=== PATIENT | female | born 1960 | race Caucasian/White ===

== ENCOUNTER 2016-11-30 15:10 | Emergency (ER) | payer SELFPAY ==
[~2016-11-30] VITALS: Wt 67.5 kg
[2016-11-30] MEDS ORDERED: SOD CHLORIDE 0.9% 1,000 ML IV STA (15:59)
[2016-11-30] MEDS ORDERED: FAMOTIDINE 20 MG INJ IV STA (15:59)
[2016-11-30] MEDS ORDERED: ONDANSETRON 4 MG INJ IV STA (15:59)
[2016-11-30] MEDS ORDERED: morphine 4 MG/ML VIAL IV STA (15:59)
[2016-11-30 16:23] LABS: ADD SCAN DIFF NO
[2016-11-30 16:30] LABS: BASOPHILS % 0.3 % (0.0-2.0); HEMATOCRIT 43.2 % (37.0-47.0); HEMOGLOBIN 14.3 g/dl (12.0-16.0); LYMPHOCYTES # 1.6 10^3/ul (0.8-2.9); LYMPHOCYTES % 14.2 % (15.0-51.0); MEAN CORPUSCULAR HEMOGLOBIN 28.7 pg (29.0-33.0); MEAN CORPUSCULAR HGB CONC 33.1 g/dl (32.0-37.0); MEAN CORPUSCULAR VOLUME 86.6 fl (82.0-101.0); MEAN PLATELET VOLUME 11.2 fl (7.4-10.4); MONOCYTE # 0.4 10^3/ul (0.3-0.9); MONOCYTES % 3.1 % (0.0-11.0); NEUTROPHIL # 9.4 10^3/ul (1.6-7.5); NEUTROPHILS % 82.1 % (39.0-77.0); PLATELET COUNT 264 10^3/UL (140-415); RED BLOOD COUNT 4.99 10^6/ul (4.20-5.40); RED CELL DISTRIBUTION WIDTH 12.9 % (11.5-14.5); WHITE BLOOD COUNT 11.4 10^3/ul (4.8-10.8)
[2016-11-30 16:49] LABS: ALANINE AMINOTRANSFERASE 39 IU/L (13-69); ALBUMIN 5.5 g/dl (3.3-4.9); ALBUMIN/GLOBULIN RATIO 1.52; ALKALINE PHOSPHATASE 113 IU/L (42-121); ANION GAP 18 (8-16); ASPARTATE AMINO TRANSFERASE 33 IU/L (15-46); BILIRUBIN,INDIRECT 0.6 mg/dl (0-1.1); BILIRUBIN,TOTAL 0.6 mg/dl (0.2-1.3); BLOOD UREA NITROGEN 12 mg/dl (7-20); CALCIUM 10.5 mg/dl (8.4-10.2); CARBON DIOXIDE 24 mmol/L (21-31); CHLORIDE 101 mmol/L (97-110); CREATININE 0.75 mg/dl (0.44-1.00); GLUCOSE 139 mg/dl (70-220); POTASSIUM 3.9 mmol/L (3.5-5.1); SODIUM 139 mmol/L (135-144); TOTAL PROTEIN 9.1 g/dl (6.1-8.1)
[2016-11-30 16:56] LABS: UR BILIRUBIN (Dip) NEGATIVE (NEGATIVE); UR BLOOD (Dip) NEGATIVE (NEGATIVE); UR COLOR LT. YELLOW (YELLOW); UR GLUCOSE (Dip) NEGATIVE (NEGATIVE); UR KETONES (Dip) 1+ (NEGATIVE); UR LEUKOCYTE ESTERASE (Dip) NEGATIVE (NEGATIVE); UR NITRITE (Dip) NEGATIVE (NEGATIVE); UR TOTAL PROTEIN (Dip) NEGATIVE (NEGATIVE); UR UROBILINOGEN (Dip) 0.2 E.U./dL (0.1-1.0)
[2016-11-30 17:00] LABS: ADD UMIC NO; UR CLARITY SLIGHTLY CLOUDY (CLEAR)
[2016-11-30 17:01] LABS: TROPONIN-I < 0.012 ng/ml (0.00-0.12)
--- NOTE | 2016-11-30 17:24 | RADRPT ---
PROCEDURE: US Abdomen (right upper quadrant). CLINICAL INDICATION: Right upper quadrant abdomen pain. TECHNIQUE: Multiple real-time longitudinal and transverse images of the right upper quadrant of th e abdomen were acquired utilizing a curved array transducer. Images were reviewed on a high-resoluti on PACS workstation. COMPARISON: None FINDINGS: The liver is increased in echogenicity without focal lesion. There are gallstones and sludge within the gallbladder. The gallbladder wall is not thickened. The re is no pericholecystic fluid. The bile ducts are normal with the common bile duct measuring 5 mm in diameter. The visualized portions of the pancreas are unremarkable with obscuration of the tail of the pancrea s. No free fluid is present. The right kidney measures 9.9 cm in length. There is normal echogenicity of the right kidney. The re is no perinephric fluid collection. No hydronephrosis, mass, or calculus is seen. IMPRESSION: 1. Cholelithiasis and sludge. No ultrasound evidence of acute cholecystitis. 2. Fatty liver. RPTAT: [facility] .Kofi Benitez MD, MD Date Time Electronically viewed and signed by .Kofi Benitez MD, on 11/30/2016 17:23 .K/
--- NOTE | 2016-11-30 17:44 | ERD ---
ER Documentation Chief Complaint Date/Time DATE: 11/30/16 TIME: 17:37 Chief Complaint epigastric pain since 04am with N/V unk # of emesis (BRITTANEY PATTEN NP) HPI This is a 56-year-old female presents to the emergency department for epigastric abdominal pain with nausea and vomiting starting today. Patient states symptoms started around 4 AM about 11 hours ago. Patient states she has had about 6 episodes of nonbloody, nonbilious emesis. Patient has had severe 10 /10 epigastric pain that rates to right upper quadrant of abdomen. Describes pain as sharp and pressure. Patient did not take anything for pain. No diarrhea or constipation. No fevers or chills. Patient states she has never had this pain before. (BRITTANEY PATTEN NP) ROS All systems reviewed and are negative except as per history of present illness. (BRITTANEY PATTEN NP) Medications Home Meds Active Scripts Ondansetron (Ondansetron Odt) 4 Mg Tab.rapdis, 4 MG PO Q6H Y for NAUSEA AND/OR VOMITING, #10 TAB Prov:BRITTANEY PATTEN NP 11/30/16 Ibuprofen* (Motrin*) 400 Mg Tab, 400 MG PO Q6, #20 TAB Prov:BRITTANEY PATTEN NP 11/30/16 Hydrocodone/Acetaminophen ([place] 5-325 Tablet) 1 Each Tablet, 1 TAB PO Q6H Y for PAIN, #7 TAB Prov:BRITTANEY PATTEN NP 11/30/16 Allergies Allergies: Coded Allergies: No Known Allergy (Unverified , 11/30/16) PMhx/Soc Medical and Surgical Hx: pt denies Medical Hx, pt denies Surgical Hx History of Surgery: Yes (Hystorectomy) Hx Alcohol Use: Yes Hx Substance Use: No Hx Tobacco Use: No Smoking Status: Never smoker (BRITTANEY PATTEN NP) Physical Exam Vitals Vital Signs Date Time Temp Pulse Resp B/P Pulse Ox O2 Delivery O2 Flow Rate FiO2 11/30/16 15:27 99.1 73 27 139/69 100 (RUCHI BOOKER PA-C) Physical Exam Const: Alert, and writhing in pain Head: Atraumatic Eyes: Normal Conjunctiva ENT: Normal External Ears, Nose and Mouth. Neck: Full range of motion..~ No meningismus. Resp: Clear to auscultation bilaterally. No wheezing, rhonchi or crackles. Cardio: Regular rate and rhythm, no murmurs Abd: Soft, non tender, non distended. Normal bowel sounds. Positive Mandel sign, negative rebound tenderness, negative psoas sign Skin: No petechiae or rashes Back: No midline or flank tenderness. No CVA tenderness. Ext: No cyanosis, or edema Neur: Awake and alert Psych: Normal Mood and Affect (SANDOR,BRITTANEY Aguilar NP) Result Diagram: 11/30/16 1610 11/30/16 1610 Results 24 hrs Laboratory Tests Test 11/30/16 16:10 White Blood Count 11.410^3/ul Red Blood Count 4.9910^6/ul Hemoglobin 14.3g/dl Hematocrit 43.2% Mean Corpuscular Volume 86.6fl Mean Corpuscular Hemoglobin 28.7pg Mean Corpuscular Hemoglobin Concent 33.1g/dl Red Cell Distribution Width 12.9% Platelet Count 33484^3/UL Mean Platelet Volume 11.2fl Neutrophils % 82.1% Lymphocytes % 14.2% Monocytes % 3.1% Eosinophils % 0.0% Basophils % 0.3% Nucleated Red Blood Cells % 0.0/100WBC Neutrophils # 9.410^3/ul Lymphocytes # 1.610^3/ul Monocytes # 0.410^3/ul Eosinophils # 0.010^3/ul Basophils # 0.010^3/ul Nucleated Red Blood Cells # 0.010^3/ul Urine Color LT. YELLOW Urine Clarity SLIGHTLY CLOUDY Urine pH 8.5 Urine Specific [place] 1.015 Urine Ketones 1+ Urine Nitrite NEGATIVE Urine Bilirubin NEGATIVE Urine Urobilinogen 0.2 E.U./dL Urine Leukocyte Esterase NEGATIVE Urine Hemoglobin NEGATIVE Urine Glucose NEGATIVE% Urine Total Protein NEGATIVE Sodium Level 139mmol/L Potassium Level 3.9mmol/L Chloride Level 101mmol/L Carbon Dioxide Level 24mmol/L Anion Gap 18 Blood Urea Nitrogen 12mg/dl Creatinine 0.75mg/dl Glucose Level 139mg/dl Calcium Level 10.5mg/dl Total Bilirubin 0.6mg/dl Direct Bilirubin 0.00mg/dl Indirect Bilirubin 0.6mg/dl Aspartate Amino Transf (AST/SGOT) 33IU/L Alanine Aminotransferase (ALT/SGPT) 39IU/L Alkaline Phosphatase 113IU/L Troponin I < 0.012ng/ml Total Protein 9.1g/dl Albumin 5.5g/dl Globulin 3.60g/dl Albumin/Globulin Ratio 1.52 Lipase 51U/L Current Medications Medications (Trade) Dose Ordered Sig/Chetan Route PRN Reason Start Time Stop Time Status Last Admin Dose Admin Sodium Chloride (NS) 1,000 ml @ 1,000 mls/hr Q1H STAT IV 11/30/16 15:59 11/30/16 16:58 DC 11/30/16 16:11 Morphine Sulfate (morphine) 4 mg ONCE STAT IV 11/30/16 15:59 11/30/16 16:03 DC 11/30/16 16:11 Ondansetron HCl (Zofran Inj) 4 mg ONCE STAT IV 11/30/16 15:59 11/30/16 16:03 DC 11/30/16 16:11 Famotidine (Pepcid Iv) 20 mg ONCE STAT IV 11/30/16 15:59 11/30/16 16:03 DC 11/30/16 16:11 (RUCHI BOOKER PA-C) Procedures/MDM Patient: TENA SHARPE : 1960 Age: 56 Sex: F MR #: [id number] DOS: 11/30/16 1559 Ordering MD: BRITTANEY PATTEN NP Location: [facility] Room/Bed: PROCEDURE: US Abdomen (right upper quadrant). CLINICAL INDICATION: Right upper quadrant abdomen pain. TECHNIQUE: Multiple real-time longitudinal and transverse images of the right upper quadrant of the abdomen were acquired utilizing a curved array transducer. Images were reviewed on a high-resolution PACS workstation. COMPARISON: None FINDINGS: The liver is increased in echogenicity without focal lesion. There are gallstones and sludge within the gallbladder. The gallbladder wall is not thickened. There is no pericholecystic fluid. The bile ducts are normal with the common bile duct measuring 5 mm in diameter. The visualized portions of the pancreas are unremarkable with obscuration of the tail of the pancreas. No free fluid is present. The right kidney measures 9.9 cm in length. There is normal echogenicity of the right kidney. There is no perinephric fluid collection. No hydronephrosis , mass, or calculus is seen. IMPRESSION: 1. Cholelithiasis and sludge. No ultrasound evidence of acute cholecystitis. 2. Fatty liver. [place] [id number] Radiology Main Line: [phone] DIAGNOSTIC IMAGING REPORT Patient: TENA SHAREP : 1960 Age: 56 Sex: F MR #: [id number] DOS: 11/30/16 1559 Ordering MD: BRITTANEY PATTEN NP Location: [facility] Room/Bed: PROCEDURE: CT KUB. CLINICAL INDICATION: epigastric abdominal pain TECHNIQUE: CT KUB (Renal Stone Survey) without contrast was performed on a [employer] volumetric [address] scanner. No IV contrast was administered. 3-D coronal reformatted images were obtained from the axial source images. CTDI: 9.0 mGy DLP: 483 mGy-cm COMPARISON: No prior studies are available for comparison. FINDINGS: Limited evaluation of the lung bases are clear. The unenhanced liver, spleen, bilateral adrenal glands, and pancreas are normal- appearing. The gallstone seen on the same day abdominal ultrasound is not well radiopaque are not well seen by CT. There is minimal diffuse gallbladder wall thickening which is nonspecific. No pericholecystic fluid or fat stranding. The bilateral kidneys are normal-appearing aside from a nonobstructing left lower pole renal calculus measuring approximately 2 mm. No hydronephrosis. No gross renal mass. The small and large bowel are thin-walled and nondilated without evidence for obstruction. The uterus is surgically absent. The appendix is normal. No abdominal pelvic free air, free fluid, mesenteric stranding, nor lymphadenopathy by imaging size criteria. Urinary bladder is grossly normal. The abdominal aorta is normal in caliber. No suspicious osseous lesions. IMPRESSION: Mild diffuse gallbladder wall thickening without pericholecystic fluid or fat stranding is nonspecific. Recommend correlation with physical exam and same day abdominal ultrasound to exclude cholecystitis. The gallstone seen on the same day abdominal ultrasound is not radiopaque and therefore not seen on the CT examination. 2 mm left lower pole nonobstructing renal calculus. Normal appendix. Status post hysterectomy. EKG: As interpreted by myself and Dr. Rivas Rate/Rhythm: Normal sinus rhythm with heart rate 68 bpm QRS, ST, T-waves: No changes consistent w/ acute ischemia Impression: No evidence of ischemia or arrhythmia MDM: This is a 56-year-old female presenting to the emergency department for epigastric pain with nausea and vomiting starting today. Patient had 6 episodes of nonbloody nonbilious emesis earlier today. Patient is writhing in pain upon arrival. IV access obtained and patient given morphine, Zofran and Pepcid. No active vomiting while in the ED. Upon reassessment, patient states pain is now 2/10 and pain is tolerable. Patient is resting comfortably on recliner. Labs are unremarkable. No significant anemia or infection. No elevated liver enzymes-AST and ALT are normal. Bilirubin is normal. Gallbladder ultrasound reviewed by radiologist as cholelithiasis and sludge. No ultrasound evidence of acute cholecystitis. Fatty liver. Patient was signed out to Enrique REBOLLEDO pending CT abdomen and pelvis results. CT abdomen and pelvis reviewed by radiologist as mild diffuse gallbladder wall thickening without pericholecystic fluid or fat stranding is nonspecific. 2 mm left lower pole nonobstructing renal calculus. Differential diagnosis includes but not limited to acute MD, pancreatitis, peptic ulcer disease, GERD, gastritis and gastroparesis and functional dyspepsia. I doubt acute MD due to patient's normal vital signs, patient denies chest pain , shortness of breath, difficulty breathing or heart palpitations. I doubt pancreatitis due to patient's normal lab results. Patient is appropriate for outpatient management and instructed to follow-up with primary care provider in the next 2-3 days for reassessment. Return to ED for any high fever, chest pain, difficulty breathing, shortness breath, wheezing , vomiting, diarrhea, abdominal pain or any new or worsening symptoms. Patient verbalizes understanding. All questions answered at discharge. (BRITTANEY PATTEN NP) Brittaney asked me to follow-up regarding CT results which are here below. Please refer to her note for further details regarding this patient's visit Mild diffuse gallbladder wall thickening without pericholecystic fluid or fat stranding is nonspecific. Recommend correlation with physical exam and same day abdominal ultrasound to exclude cholecystitis. The gallstone seen on the same day abdominal ultrasound is not radiopaque and therefore not seen on the CT examination. 2 mm left lower pole nonobstructing renal calculus. Normal appendix. Status post hysterectomy. (RUCHI BOOKER PA-C) Departure Diagnosis: Primary Impression: Cholelithiasis Cholelithiasis location: gallbladder Cholecystitis presence: without cholecystitis Biliary obstruction: without biliary obstruction Qualified Code : K80.20 - Calculus of gallbladder without cholecystitis without obstruction Condition: Stable BRITTANEY PATTEN NP Nov 30, 2016 17:44 RUCHI BOOKER PA-C Nov 30, 2016 18:59
[2016-11-30] MEDS ORDERED: IBUP400T22 PO (17:56)
[2016-11-30] MEDS ORDERED: HYDR-906 PO (17:56)
[2016-11-30] MEDS ORDERED: ONDA4TAB14 PO (17:56)
--- NOTE | 2016-11-30 18:49 | RADRPT ---
PROCEDURE: CT KUB. CLINICAL INDICATION: epigastric abdominal pain TECHNIQUE: CT KUB (Renal Stone Survey) without contrast was performed on a [employer] volumetric [address] scanner. No IV contrast was administered. 3-D coronal reformatted images were obtained from the axial source images. CTDI: 9.0 mGy DLP: 483 mGy-cm COMPARISON: No prior studies are available for comparison. FINDINGS: Limited evaluation of the lung bases are clear. The unenhanced liver, spleen, bilateral adrenal glands, and pancreas are normal-appearing. The gallstone seen on the same day abdominal ultrasound is not well radiopaque are not well seen by CT. There is minimal diffuse gallbladder wall thickening which is nonspecific. No pericholecystic fluid or fat stranding. The bilateral kidneys are normal-appearing aside from a nonobstructing left lower pole renal calculu s measuring approximately 2 mm. No hydronephrosis. No gross renal mass. The small and large bowel are thin-walled and nondilated without evidence for obstruction. The uterus is surgically absent. The appendix is normal. No abdominal pelvic free air, free fluid, mesenteric stranding, nor lymphadenopathy by imaging size criteria. Urinary bladder is grossly normal. The abdominal aorta is normal in caliber. No suspicious osseous lesions. IMPRESSION: Mild diffuse gallbladder wall thickening without pericholecystic fluid or fat stranding is nonspecif ic. Recommend correlation with physical exam and same day abdominal ultrasound to exclude cholecyst itis. The gallstone seen on the same day abdominal ultrasound is not radiopaque and therefore not s een on the CT examination. 2 mm left lower pole nonobstructing renal calculus. Normal appendix. Status post hysterectomy. Physician Eric Date Time Electronically viewed and signed by Physician Eric on 11/30/2016 18:49 ML/
[2016-11-30 19:03] VITALS: BP 115/65; PULSE 62; RESP 16; TEMP 98.3
== END 2016-11-30 19:06 | disposition home or self-care (01) ==
LOC: FTE 15:10
DX: K80.20 Calculus of gallbladder without cholecystitis without obstruction (principal); R11.2 Nausea with vomiting, unspecified
CPT/HCPCS: 36415; 74176; 76705; 80053; 81003; 83690; 84484; 85025; 93005; 96374; 96375; 99285; J2270; J2405; J7030

== ENCOUNTER 2018-11-03 18:34 | Emergency (ER) | payer OTHER ==
[~2018-11-03] VITALS: Wt 68.9 kg
[~2018-11-03 18:34] MED LIST: HYDR-4011 PO; IBUP-1561 PO; ONDA4TAB14 PO
--- NOTE | 2018-11-03 19:04 | ERD ---
ER Documentation Chief Complaint Chief Complaint AP X'S 4 HOURS HPI The patient is a 58-year-old female, presenting to the ER because of recurrent right upper quad abdominal pain at 4 PM after eating around 1 PM, had similar symptoms previously, denies fever, chills, neck pain, chest pain, dyspnea, vomiting, dysuria, diarrhea. She does not smoke nor drink Past medical history: Cholelithiasis, osteoporosis Past surgical history: None ROS All systems reviewed and are negative except as per history of present illness. Medications Home Meds Active Scripts Ibuprofen* (Motrin*) 600 Mg Tab, 600 MG PO Q6H PRN for PAIN AND OR ELEVATED TEMP, #20 TAB Prov:PAULA VILLEDA MD 11/03/18 Ondansetron (Ondansetron Odt) 4 Mg Tab.rapdis, 4 MG PO Q6H PRN for NAUSEA AND/OR VOMITING, #10 TAB Prov:BRAN PATETN NP 11/30/16 Ibuprofen* (Motrin*) 400 Mg Tab, 400 MG PO Q6, #20 TAB Prov:BRAN PATTEN NP 11/30/16 Hydrocodone/Acetaminophen ([place] 5-325 Tablet) 1 Each Tablet, 1 TAB PO Q6H PRN for PAIN, #7 TAB Prov:BRAN PATTEN NP 11/30/16 Allergies Allergies: Coded Allergies: No Known Allergy (Unverified , 11/30/16) PMhx/Soc History of Surgery: Yes (Hystorectomy) Hx Alcohol Use: Yes Hx Substance Use: No Hx Tobacco Use: No Physical Exam Vitals Vital Signs Date Temp Pulse Resp B/P (MAP) Pulse Ox O2 O2 Flow FiO2 Time Delivery Rate 11/03/18 78 18 146/90 100 Room Air 22:34 (108) 11/03/18 76 145/83 21:48 (103) 11/03/18 97.3 94 20 158/80 98 18:35 (106) Physical Exam Const: No acute distress. Head: Atraumatic. Eyes: Normal Conjunctiva. ENT: Normal External Ears, Nose and Mouth. Neck: Full range of motion. No meningismus. Resp: Clear to auscultation bilaterally. Cardio: Regular rate and rhythm. Abd: Soft, non distended, normal bowel sounds, non tender. Mild right upper quadrant tenderness, no rigidity/rebound/CVA tenderness Skin: No petechiae or rashes. Back: No midline or flank tenderness. Ext: No cyanosis, or edema. Neur: Awake and alert. No focal deficit Psych: Normal Mood and Affect. Result Diagram: 11/03/18199911/03/181999 Results 24 hrs Laboratory Tests Test 11/03/18 20:00 11/03/18 21:23 White Blood Count 8.7 10^3/ul Red Blood Count 4.87 10^6/ul Hemoglobin 14.2 g/dl Hematocrit 41.6 % Mean Corpuscular Volume 85.4 fl Mean Corpuscular Hemoglobin 29.2 pg Mean Corpuscular Hemoglobin Concent 34.1 g/dl Red Cell Distribution Width 13.2 % Platelet Count 218 10^3/UL Mean Platelet Volume 11.1 fl Immature Granulocytes % 0.300 % Neutrophils % 63.4 % Lymphocytes % 27.6 % Monocytes % 6.5 % Eosinophils % 1.6 % Basophils % 0.6 % Nucleated Red Blood Cells % 0.0 /100WBC Immature Granulocytes # 0.030 10^3/ul Neutrophils # 5.5 10^3/ul Lymphocytes # 2.4 10^3/ul Monocytes # 0.6 10^3/ul Eosinophils # 0.1 10^3/ul Basophils # 0.1 10^3/ul Nucleated Red Blood Cells # 0.0 10^3/ul Sodium Level 141 mmol/L Potassium Level 3.7 mmol/L Chloride Level 109 mmol/L Carbon Dioxide Level 21 mmol/L Anion Gap 11 Blood Urea Nitrogen 14 mg/dl Creatinine 0.63 mg/dl Est Glomerular Filtrat Rate mL/min > 60 mL/min Glucose Level 103 mg/dl Calcium Level 9.9 mg/dl Total Bilirubin 0.5 mg/dl Direct Bilirubin 0.00 mg/dl Indirect Bilirubin 0.5 mg/dl Aspartate Amino Transf (AST/SGOT) 43 IU/L Alanine Aminotransferase (ALT/SGPT) 29 IU/L Alkaline Phosphatase 134 IU/L Total Protein 8.2 g/dl Albumin 4.6 g/dl Globulin 3.60 g/dl Albumin/Globulin Ratio 1.27 Lipase 82 U/L Bedside Urine pH (LAB) 7.5 Bedside Urine Protein (LAB) Negative Bedside Urine Glucose (UA) Negative Bedside Urine Ketones (LAB) Negative Bedside Urine Blood Negative Bedside Urine Nitrite (LAB) Negative Bedside Urine Leukocyte Esterase (L Trace Current Medications Medications Dose Sig/Chetan Start Time Status Last (Trade) Ordered Route PRN Stop Time Admin Dose Reason Admin Ketorolac 30 mg ONCE STAT 11/03/18 DC 11/03/18 Tromethamine IV 20:01 20:34 (Toradol) 11/03/18 20:02 Procedures/[place] [address] Radiology Main Line: [phone] DIAGNOSTIC IMAGING REPORT Patient: TENA SHARPE : 1960 Age: 58 Sex: F MR #: [id number] DOS: 11/03/18 1906 Ordering MD: PAULA VILLEDA MD Location: [facility] Room/Bed: PROCEDURE: Abdominal ultrasound, limited. CLINICAL INDICATION: Abdominal pain. TECHNIQUE: Multiple real-time images were acquired of the patient's right upper abdomen utilizing a high resolution transducer. COMPARISON: 11/30/2016. FINDINGS: The liver demonstrates increased echogenicity and normal size measuring 15.2 cm. There is no focal mass or intrahepatic biliary ductal dilatation. The portal vein is patent. The gallbladder is not distended. There is a non-mobile echogenic gallstone identified within the gallbladder neck. There is focal tenderness over the gallbladder. There is no pericholecystic fluid or gallbladder wall thickening. The common bile duct measures 4.6 mm in maximal dimension. The visualized portions of the pancreas are unremarkable. No free fluid is identified. The right kidney is normal size and echogenicity measuring 10.4 cm. There is no focal renal mass or echogenic calculus identified. There is no obstructive uropathy. IMPRESSION: Cholelithiasis with positive sonographic Mandel's sign. There is no gallbladder wall thickening or pericholecystic fluid. Fatty infiltration of the liver. .Ahsan Adan MD, MD Date Time Electronically viewed and signed by .Ahsan Adan MD, MD on 11/03/2018 20:43 .T/ CC: PAULA VILLEDA MD [phone] MEDICAL MAKING DECISION: The patient is a 58-year-old female, presenting with acute biliary colic, was treated with Toradol 30 mg IV for pain with good response, is stable for outpatient follow-up The differential diagnoses considered include but are not limited to cholelithiasis, cholecystitis, choledocholithiasis, cholangitis, pancreatitis, hepatitis, gastritis, peptic ulcer disease, gastric ulcer, appendicitis, cystitis, diverticulitis, partial small bowel obstruction. Departure Diagnosis: Primary Impression: Biliary colic Condition: Good Comments She was discharged with Motrin The patient's blood pressure was elevated (>120/80) but appears stable without evidence of hypertension emergency or urgency. The patient was counseled about the risks of hypertension and urged to pursue outpatient monitoring and therapy within a week with their primary care physician. I discussed the findings with the patient. I advised the patient to follow-up with the primary physician in about 2-3 days for reevaluation and referral to general surgery for elective cholecystectomy, sooner if needed and return if any concern. Disclaimer: Inadvertent spelling and grammatical errors are likely due to EHR/dictation software use and do not reflect on the overall quality of patient care. Also, please note that the electronic time recorded on this note does not necessarily reflect the actual time of the patient encounter. PAULA VILLEDA MD November 03, 2018 19:04
[2018-11-03] MEDS ORDERED: KETOROLAC 30 MG INJ IV STA (20:01)
[2018-11-03] MEDS ORDERED: IBUP-1542 PO (22:02)
[2018-11-03 22:34] VITALS: BP 146/90; PULSE 78; RESP 18
== END 2018-11-03 22:41 | disposition home or self-care (01) ==
LOC: E/R 18:34
DX: K80.50 Calculus of bile duct without cholangitis or cholecystitis without obstruction (principal)
CPT/HCPCS: 36415; 76705; 80053; 81003; 83690; 85025; 96374; J1885; Z7502